=== PATIENT | male | born 1995 | race Caucasian/White ===

== ENCOUNTER 2018-11-30 11:32 | Emergency (ER) | payer OTHER ==
[2018-11-30 11:36] VITALS: BP 110/59; PULSE 79; TEMP 97.9; BMI 25.7
--- NOTE | 2018-11-30 12:46 | PDOC ---
History of Present Illness - General Chief Complaint: Edema Stated Complaint: RING STUCK ON FINGER Time Seen by Provider: 11/30/18 11:52 History Source: Patient - History of Present Illness Initial Comments: 11/30/18 12:40 Chief complaint: Ring stuck on finger Patient 23-year-old male Ring stuck on left index finger. Unable to take off. No other complaints. GENERAL/CONSTITUTIONAL: No fever, weakness. dizziness HEAD, EYES, EARS, NOSE AND THROAT: No change in vision. No ear pain or discharge. No sore throat. CARDIOVASCULAR: No chest pain RESPIRATORY: No shortness of breath or cough GASTROINTESTINAL: No pain, nausea, vomiting, diarrhea or constipation GENITOURINARY: No dysuria MUSCULOSKELETAL: No neck or back pain SKIN: No rash, + ring stuck on finger NEUROLOGIC: No headache, vertigo, loss of consciousness, or loss of sensation. GENERAL: The patient is awake, alert, and fully oriented, in no acute distress. HEAD: Normal with no signs of trauma. EXTREMITIES: Ring stuck on left index finger, no signs of infection, neurovascular intact, otherwise rest of extremities, normal range of motion, no edema. NEUROLOGICAL: Normal speech, normal gait. SKIN: Warm, Dry Past History - Past Medical History Allergies/Adverse Reactions: Allergies Allergy/AdvReac Type Severity Reaction Status Date / Time diphenhydramine HCl AdvReac Verified 11/30/18 11:36 [From Benadryl] Home Medications: Ambulatory Orders NK [No Known Home Medication] 02/02/16 COPD: No - Suicide/Smoking/Psychosocial Hx Smoking History: Never smoked Information on smoking cessation initiated: No Hx Alcohol Use: No Drug/Substance Use Hx: No Substance Use Type: Alcohol *Physical Exam - Vital Signs Last Vital Signs Temp Pulse Resp BP Pulse Ox 97.9 F 79 19 110/59 L 97 11/30/18 11:34 11/30/18 11:34 11/30/18 11:34 11/30/18 11:34 11/30/18 11:34 Medical Decision Making - Medical Decision Making 11/30/18 12:42 23-year-old with a ring stuck on left index finger, removed with ring cutter without difficulty, no signs of open skin, infection, full range of motion, neurovascular intact no further needed. 11/30/18 13:13 Discussed issues, findings, results, applicable medications and treatments and follow-up. All these were understood and all questions were answered *DC/Admit/Observation/Transfer Diagnosis at time of Disposition: Tight ring on finger - Discharge Dispostion Disposition: HOME Condition at time of disposition: Stable - Referrals - Patient Instructions Additional Instructions: Elevate You can apply ice for 20 minutes every 2 hours for the next 2 days Motrin 600 mg every 6 hours for pain. return if any other concerns - Post Discharge Activity
== END 2018-11-30 12:53 | disposition home or self-care (01) ==
LOC: JERFT 11:32
DX: S60.455A Superficial foreign body of left ring finger, initial encounter (principal)
CPT/HCPCS: 99281-25